=== PATIENT | male | born 1995 | race African-American/Black ===

== ENCOUNTER 2019-06-15 20:57 | Emergency (ER) | payer MEDICAID ==
[~2019-06-15] VITALS: Ht 188 cm; Wt 81.6 kg
[2019-06-15 21:42] LABS: Basophils # (auto) 0 uL; Eosinophils % (auto) 0.7 % (0.0-7.0); Hemoglobin 17.7 g/dL (13.5-17.5); Lymphocytes # (auto) 2.1 uL; Monocytes # (auto) 0.8 uL; Monocytes % (auto) 11.5 % (0.0-12.0); Neutrophils # (auto) 4.1 uL; Neutrophils % (auto) 57.5 % (37.0-80.0); White Blood Cell 7.1 10^3/uL (4.4-10.8)
[2019-06-15 21:48] LABS: Basophils % (auto) 0.4 % (0.0-2.0); Eosinophils # (auto) 0.1 uL; Lymphocytes % (auto) 29.9 % (10.0-50.0); Nucleated Red Blood Cells % 0.1 %; Red Blood Cells 5.44 10^6/uL (4.5-5.90)
[2019-06-15 21:49] LABS: Hematocrit 51.5 % (41.0-53.0); Mean Corpuscular Hemoglobin 32.5 pg (28.0-32.0); Mean Corpuscular Hgb Conc. 34.3 g/dL (32.0-36.0); Mean Corpuscular Volume 94.7 fL (80.0-100.0); Platelet Count (auto) 246 10^3/uL (140-450)
[2019-06-15 22:01] LABS: Alanine Aminotransferase 155 U/L (16-61); Albumin 4.3 g/dL (3.4-5.0); Anion Gap 7 (5-15); Aspartate Aminotransferase 105 U/L (15-37); BUN/Creatinine Ratio 6.1; Blood Urea Nitrogen 6 mg/dL (7-18); Calcium 9.1 mg/dL (8.5-10.1); Carbon Dioxide 26 mmol/L (21-32); Chloride 101 mmol/L (98-107); GFR African American 122 mL/min; GFR Non-African American 101 mL/min; Glucose 114 mg/dL (74-106); Lipase 67 U/L (73-393); Potassium 3.4 mmol/L (3.5-5.1); Sodium 134 mmol/L (136-145)
[2019-06-15 22:03] LABS: Alkaline Phosphatase 88 U/L (45-117); Bilirubin, Total 1.1 mg/dL (0.2-1.0)
[2019-06-16 01:55] VITALS: BP 155/90
[2019-06-16 02:26] LABS: Urine WBC None Seen /hpf (0 - 3)
[2019-06-16 02:34] LABS: Urine Bacteria NONE SEEN /hpf (None Seen); Urine Blood Negative /uL (Negative); Urine Specific Gravity 1.011 (1.001-1.035)
[2019-06-16 02:48] LABS: Alcohol, Urine < 3.0 mg/dL (0-5); Amphetamine Screen, Urine NEGATIVE (NEGATIVE); Barbiturate Scree,Urine NEGATIVE (NEGATIVE); Benzodiazephine Screen, Urine NEGATIVE (NEGATIVE); Cannabinoid Screen, Urine POSITIVE (NEGATIVE); Cocaine Screen, Urine NEGATIVE (NEGATIVE)
[2019-06-16 02:56] LABS: Opiate Scree,Urine NEGATIVE (NEGATIVE); Phencyclidine Screen, Urine NEGATIVE (NEGATIVE)
== END 2019-06-16 04:27 | disposition home or self-care (01) ==
LOC: ER 20:59 → EDBD 20:59 → ER 06-16 04:27
DX: K29.00 Acute gastritis without bleeding (principal); F12.988 Cannabis use, unspecified with other cannabis-induced disorder
CPT/HCPCS: 36415; 74176; 80053; 80307; 81001; 83690; 85025; 99284; J7030